=== PATIENT | female | born 1985 | race Caucasian/White ===

== ENCOUNTER 2017-04-17 09:48 | Emergency (ER) | payer OTHER ==
--- NOTE | 2017-04-17 10:20 | ED ---
Female Urogenital HPI - General Chief complaint: Urogenital Stated complaint: Vaginal pain Time Seen by Provider: 04/17/17 10:12 Source: patient, RN notes reviewed Mode of arrival: ambulatory Limitations: no limitations - History of Present Illness Initial comments: 31-year-old female presents to the emergency Department chief complaint of pelvic pain and vaginal spotting. Patient states she's had this pain for the past few days. Patient states she's noticed a clear discharge along with spotting. Patient states that she has lower abdominal pain pain with sexual intercourse. Patient states she had a Pap smear about 6 weeks ago and everything was negative. Patient denies any burning with urination. Patient states is have a strange odor and color to the urine. Patient states that she was concerned due to pain and discomfort so she thought that she should be evaluated.Patient denies any recent fever, chills, shortness of breath, chest pain, back pain, abdominal pain, nausea vomiting, numbness or tingling, dysuria or hematuria, constipation or diarrhea, headaches or visual changes, or any other current symptoms. Last Menstrual Period: 02/21/17 - Related Data Previous Rx's Medication Instructions Recorded Cephalexin [Keflex] 500 mg PO Q6HR #40 cap 04/17/17 Doxycycline [Vibramycin] 100 mg PO Q12HR #56 capsule 04/17/17 Allergies Allergy/AdvReac Type Severity Reaction Status Date / Time Penicillins Allergy Unknown Verified 04/17/17 10:06 Childhood Review of Systems ROS Statement: Those systems with pertinent positive or pertinent negative responses have been documented in the HPI. ROS Other: All systems not noted in ROS Statement are negative. Past Medical History Past Medical History: No Reported History History of Any Multi-Drug Resistant Organisms: None Reported Past Surgical History: Adenoidectomy Additional Past Surgical History / Comment(s): Ear Surgery - tubes and reconstruction Past Anesthesia/Blood Transfusion Reactions: No Reported Reaction Past Psychological History: No Psychological Hx Reported Smoking Status: Current every day smoker Past Alcohol Use History: None Reported Past Drug Use History: None Reported General Exam Limitations: no limitations General appearance: alert, in no apparent distress Neck exam: Present: normal inspection. Absent: tenderness, meningismus, lymphadenopathy Respiratory exam: Present: normal lung sounds bilaterally. Absent: respiratory distress, wheezes, rales, rhonchi, stridor Cardiovascular Exam: Present: regular rate, normal rhythm, normal heart sounds. Absent: systolic murmur, diastolic murmur, rubs, gallop, clicks GI/Abdominal exam: Present: soft, normal bowel sounds. Absent: distended, tenderness, guarding, rebound, rigid External exam: Present: normal external exam Speculum exam: Present: erythema (Minimal to the service), cervical discharge ( Bloody, clear), vaginal bleeding By manual exam: Present: cervical motion tenderness. Absent: adnexal tenderness , adnexal mass, uterine enlargement, uterine tenderness Neurological exam: Present: alert, oriented X3 Psychiatric exam: Present: normal affect, normal mood Skin exam: Present: warm, dry, intact, normal color. Absent: rash Course Vital Signs 04/17/17 10:06 Temperature 97.4 F L Pulse Rate 77 Respiratory 20 Rate Blood Pressure 117/56 O2 Sat by Pulse 98 Oximetry Medical Decision Making - Medical Decision Making 31-year-old female presents to the emergency Department chief complaint of concern for STDs. At this time patient does have cervical motion tenderness. We did prophylactically treat. We did discuss a sex practices care follow-up. We did discuss return parameters all questions. Patient stated that she understood and she is negative. This time patient will be discharged home. - Lab Data Lab Results 04/17/17 04/17/17 04/17/17 Range/Units 10:26 10:26 10:26 Urine Color Dark Yellow Urine Appearance Cloudy H (Clear) Urine pH 5.5 (5.0-8.0) Ur Specific [place] 1.033 (1.001-1.035) Urine Protein 1+ H (Negative) Urine Glucose (UA) Negative (Negative) Urine Ketones Trace H (Negative) Urine Blood Negative (Negative) Urine Nitrite Negative (Negative) Urine Bilirubin 1+ H (Negative) Urine Urobilinogen 4.0 (<2.0) mg/dL Ur Leukocyte Esterase Small H (Negative) Urine RBC 14 H (0-5) /hpf Urine WBC 10 H (0-5) /hpf Ur Squamous Epith Cells 4 (0-4) /hpf Urine Bacteria Rare H (None) /hpf Urine Mucus Many H (None) /hpf Urine HCG, Qual Not Detected (Not Detectd) Trichomonas Ag (Rapid) Negative (Negative) Disposition Clinical Impression: Pelvic pain, Concern about STD in female without diagnosis, UTI (urinary tract infection) Disposition: HOME SELF-CARE Condition: Stable Instructions: Sexually Transmitted Diseases (ED) Additional Instructions: Please use medication as discussed. Please follow up with family doctor if symptoms have not improved over the next two days. Please return to the emergency room if your symptoms increase or worsen or for any other concerns. Prescriptions: Cephalexin [Keflex] 500 mg PO Q6HR #40 cap Doxycycline [Vibramycin] 100 mg PO Q12HR #56 capsule Referrals: Radha eTna MD [Primary Care Provider] - 1-2 days Time of Disposition: 11:21
[2017-04-17] MEDS ORDERED: cefTRIAXone 250 MG VIAL IM STA (10:30)
[2017-04-17] MEDS ORDERED: AZITHROMYCIN 500 MG TAB PO STA (10:30)
[2017-04-17] MEDS ORDERED: metroNIDAZOLE 500 MG TAB PO STA (10:30)
[2017-04-17 10:43] LABS: Appearance,Urine Cloudy (Clear); Bacteria,Urine Rare /hpf; Bilirubin,Urine 1+ (Negative); Glucose,Urine (UA) Negative (Negative); Ketones,Urine Trace (Negative); Leukocyte Esterase,Urine Small (Negative); Mucus,Urine Many /hpf; Nitrite,Urine Negative (Negative); PH, Urine 5.5 (5.0-8.0); Particle Count 15220; Protein,Urine 1+ (Negative); RBC,Urine 14 /hpf (0-5); Specific Gravity,Urine 1.033 (1.001-1.035); Squamous Epithelial Cell,Urine 4 /hpf (0-4); UA Billing (MACRO vs. MICRO) MICRO; WBC,Urine 10 /hpf (0-5)
[2017-04-17 11:34] VITALS: BP 118/56; PULSE 79; RESP 18; TEMP 98.1
== END 2017-04-17 11:34 | disposition home or self-care (01) ==
LOC: EC 09:48
DX: N39.0 Urinary tract infection, site not specified (principal); F17.200 Nicotine dependence, unspecified, uncomplicated; Z88.0 Allergy status to penicillin
CPT/HCPCS: 87591; 87491; 81001; 81025; 87808; 87070; 87086; 99283; 96372; J0696; 87205

== ENCOUNTER 2017-07-08 23:40 | Emergency (ER) | payer OTHER ==
[2017-07-08 23:49] VITALS: RESP 18
[2017-07-09] MEDS ORDERED: ACETAMINOPHEN TAB 325 MG TAB PO STA (00:42)
[2017-07-09] MEDS ORDERED: IPRATROPIUM-ALBUTEROL 3 ML NEB INHALATION STA (00:42)
[2017-07-09] MEDS ORDERED: methylPREDNISolone SOD SUCCI 125 MG/2 ML VIAL IV STA (00:42)
[2017-07-09] MEDS ORDERED: SODIUM CHLORIDE 0.9% 500 ML IV STA (00:43)
[2017-07-09 01:57] LABS: ALT 39 U/L (9-52); AST 18 U/L (14-36); Alkaline Phosphatase 100 U/L (38-126); Anion Gap 9 mmol/L; Anisocytosis Slight; Basophils % (A) 0 %; Blood Urea Nitrogen 9 mg/dL (7-17); CH 26.1; CHCM 31.5; Calcium 8.8 mg/dL (8.4-10.2); Carbon Dioxide 21 mmol/L (22-30); Chloride 110 mmol/L (98-107); Eosinophils # (A) 0.2 k/uL (0-0.7); Eosinophils % (A) 2 %; Glucose 96 mg/dL (74-99); HCT 41.1 % (34.0-46.0); HDW 2.71; Hypochromasia Slight; Luc # (Auto) 0.15; Luc % (Auto) 1; Lymphocytes # (A) 1.9 k/uL (1.0-4.8); Lymphocytes % (A) 18 %; MCH 26.4 pg (25.0-35.0); MCHC 31.6 g/dL (31.0-37.0); MCV 83.6 fL (80.0-100.0); Monocytes # (A) 0.4 k/uL (0-1.0); Monocytes % (A) 4 %; Neutrophils # (A) 8.1 k/uL (1.3-7.7); Neutrophils % (A) 75 %; Non-African American GFR(MDRD) >60 (>60 ml/min/1.73 sqM); Potassium 3.9 mmol/L (3.5-5.1); RBC 4.92 m/uL (3.80-5.40); RDW 17.5 % (11.5-15.5); Sodium 140 mmol/L (137-145); Total Bilirubin 0.2 mg/dL (0.2-1.3); Total Protein 6.1 g/dL (6.3-8.2); WBC 10.8 k/uL (3.8-10.6); WBC (Perox) 11.18
--- NOTE | 2017-07-09 02:19 | XR ---
EXAM: XR Chest, 2 Views CLINICAL HISTORY: Reason: Pain TECHNIQUE: Frontal and lateral views of the chest. COMPARISON: No relevant prior studies available. FINDINGS: Lungs: Unremarkable. No consolidation. Pleural space: Unremarkable. No pneumothorax. Heart: Unremarkable. No cardiomegaly. Mediastinum: Unremarkable. Bones/joints: Unremarkable. Soft tissues: Left nipple ring. IMPRESSION: No acute findings.
[2017-07-09 02:58] VITALS: BP 142/78; PULSE 80; TEMP 97.8
--- NOTE | 2017-07-09 03:20 | ED ---
SOB HPI - General Chief Complaint: Shortness of Breath Stated Complaint: MEEK,Heart Palpitations Time Seen by Provider: 07/09/17 00:03 Source: patient Mode of arrival: ambulatory Limitations: no limitations - History of Present Illness Initial Comments: 31-year-old female patient presents with a 2 day history of cough and shortness of breath. Patient states that she started with a congested sounding cough yesterday. States that today she feels run down, states that the cough is worsening. She states that she has chest tightness and shortness of breath with activity. She states that the chest tightness wraps around her back. She states that she does hear some wheezing. She denies any sputum production, states that the cough is dry. She states that she has no history of a lung condition. She states that she does smoke cigarettes. She states that she also has nasal congestion and facial pressure, the nasal discharge is green in color. She denies any ear pain. There are several people at her place of employment sick with similar symptoms. Patient denies any recent fever, chills, shortness breath, chest pain, abdominal pain, nausea, vomiting, diarrhea, constipation, back pain, numbness, tingling, dizziness, weakness, hematuria, dysuria, urinary urgency, urinary frequency, headache, visual changes, or any other complaints. - Related Data Previous Rx's Medication Instructions Recorded Cephalexin [Keflex] 500 mg PO Q6HR #40 cap 04/17/17 Doxycycline [Vibramycin] 100 mg PO Q12HR #56 capsule 04/17/17 Albuterol Sulfate [Proair Hfa] 1 - 2 puff INHALATION Q6HR PRN #1 07/09/17 inhaler predniSONE 50 mg PO DAILY #7 tablet 07/09/17 Allergies Allergy/AdvReac Type Severity Reaction Status Date / Time Penicillins Allergy Unknown Verified 07/08/17 23:46 Childhood morphine AdvReac Nausea & Verified 07/08/17 23:46 Vomiting Review of Systems ROS Statement: Those systems with pertinent positive or pertinent negative responses have been documented in the HPI. ROS Other: All systems not noted in ROS Statement are negative. Past Medical History Past Medical History: No Reported History History of Any Multi-Drug Resistant Organisms: None Reported Past Surgical History: Adenoidectomy Additional Past Surgical History / Comment(s): Ear Surgery - tubes and reconstruction Past Anesthesia/Blood Transfusion Reactions: No Reported Reaction Past Psychological History: No Psychological Hx Reported Smoking Status: Current every day smoker Past Alcohol Use History: None Reported Past Drug Use History: None Reported General Exam Limitations: no limitations General appearance: alert, in distress (Mild), other (Well-developed, well- nourished adult female who appears to be in mild respiratory distress. Labored breathing noted. Initial vital signs were temperature 98.1F, pulse 94, respirations 18, blood pressure 135/62, pulse ox 97% on room air.) ENT exam: Present: normal exam, normal oropharynx, mucous membranes moist, TM's normal bilaterally Neck exam: Present: normal inspection. Absent: tenderness, meningismus, lymphadenopathy Respiratory exam: Present: wheezes (Tight expiratory wheezing noted throughout all posterior lung marshall.), accessory muscle use, other (She is able to speak full sentences). Absent: respiratory distress, rales, rhonchi, stridor Cardiovascular Exam: Present: regular rate, normal rhythm, normal heart sounds. Absent: systolic murmur, diastolic murmur, rubs, gallop, clicks GI/Abdominal exam: Present: soft, normal bowel sounds. Absent: distended, tenderness, guarding, rebound, rigid Neurological exam: Present: alert, oriented X3, CN II-XII intact Psychiatric exam: Present: normal affect, normal mood Skin exam: Present: warm, dry, intact, normal color. Absent: rash Course Vital Signs 07/08/17 07/09/17 07/09/17 23:46 00:48 00:58 Temperature 98.1 F 99.8 F H Pulse Rate 94 88 Respiratory 18 Rate Blood Pressure 135/62 O2 Sat by Pulse 97 Oximetry 07/09/17 07/09/17 01:04 02:57 Temperature 97.8 F Pulse Rate 88 80 Respiratory 18 Rate Blood Pressure 142/78 O2 Sat by Pulse 99 Oximetry Medical Decision Making - Medical Decision Making 31-year-old female patient presented to emergency department today for complaints of cough, congestion, and shortness of breath. Lab work was reviewed and was unremarkable. Chest x-ray showed no acute cardiopulmonary process. Physical exam did reveal tight expiratory wheezing throughout posterior lung marshall. Patient was given IV Solu-Medrol and an updraft breathing treatment. States this did improve her symptoms somewhat. Vital signs remained stable. She will be discharged home on a 7 day course of prednisone as well as the albuterol inhaler to use every 4 hours as needed. She 'll be instructed to follow-up with her primary care physician for recheck in 1- 2 days. She is instructed to return here immediately for any new, worsening, or concerning symptoms. Patient verbalizes understanding and agrees with this plan. - Lab Data Result diagrams: 07/09/17 01:35 07/09/17 01:35 Lab Results 07/09/17 07/09/17 07/09/17 Range/Units 01:20 01:35 01:35 WBC 10.8 H (3.8-10.6) k/uL RBC 4.92 (3.80-5.40) m/uL Hgb 13.0 (11.4-16.0) gm/dL Hct 41.1 (34.0-46.0) % MCV 83.6 (80.0-100.0) fL MCH 26.4 (25.0-35.0) pg MCHC 31.6 (31.0-37.0) g/dL RDW 17.5 H (11.5-15.5) % Plt Count 206 (150-450) k/uL Neutrophils % 75 % Lymphocytes % 18 % Monocytes % 4 % Eosinophils % 2 % Basophils % 0 % Neutrophils # 8.1 H (1.3-7.7) k/uL Lymphocytes # 1.9 (1.0-4.8) k/uL Monocytes # 0.4 (0-1.0) k/uL Eosinophils # 0.2 (0-0.7) k/uL Basophils # 0.0 (0-0.2) k/uL Hypochromasia Slight Anisocytosis Slight Sodium 140 (137-145) mmol/L Potassium 3.9 (3.5-5.1) mmol/L Chloride 110 H (98-107) mmol/L Carbon Dioxide 21 L (22-30) mmol/L Anion Gap 9 mmol/L BUN 9 (7-17) mg/dL Creatinine 0.80 (0.52-1.04) mg/dL Est GFR (MDRD) Af Amer >60 (>60 ml/min/1.73 sqM) Est GFR (MDRD) Non-Af >60 (>60 ml/min/1.73 sqM) Glucose 96 (74-99) mg/dL Calcium 8.8 (8.4-10.2) mg/dL Total Bilirubin 0.2 (0.2-1.3) mg/dL AST 18 (14-36) U/L ALT 39 (9-52) U/L Alkaline Phosphatase 100 (38-126) U/L Total Protein 6.1 L (6.3-8.2) g/dL Albumin 3.3 L (3.5-5.0) g/dL Influenza Type A RNA Not Detected (Not Detectd) Influenza Type B (PCR) Not Detected (Not Detectd) - Radiology Data Radiology results: report reviewed, image reviewed Two-view x-ray of the chest shows that the lungs are unremarkable with no consolidation. Pleural spaces unremarkable no pneumothorax. Heart is unremarkable no cardia megaly. Mediastinum is unremarkable. Bones and joints are unremarkable. Soft tissues show left nipple ring. Impression by Dr. Salmeron shows no acute findings. Disposition Clinical Impression: Acute bronchitis, Wheezing Disposition: HOME SELF-CARE Condition: Good Instructions: Acute Bronchitis (ED) Additional Instructions: Increase fluids. Use medications as directed. Follow up with her primary care physician for recheck in 1-2 days. Return here immediately for any new, worsening, or concerning symptoms. Prescriptions: Albuterol Sulfate [Proair Hfa] 1 - 2 puff INHALATION Q6HR PRN #1 inhaler PRN Reason: Shortness of Breath/Wheezing predniSONE 50 mg PO DAILY #7 tablet Referrals: Radha Tena MD [Primary Care Provider] - 1-2 days Time of Disposition: 03:19
== END 2017-07-09 03:33 | disposition home or self-care (01) ==
LOC: EC 23:40
DX: J20.9 Acute bronchitis, unspecified (principal); N64.59 Other signs and symptoms in breast; R09.81 Nasal congestion; F17.210 Nicotine dependence, cigarettes, uncomplicated; Z88.0 Allergy status to penicillin; Z88.5 Allergy status to narcotic agent
CPT/HCPCS: 36415; 94640; 80053; 85025; 87040; 87502; 71020; 99285; 96374; 96361 ×2; J2930

== ENCOUNTER → 2017-07-08 | Outpatient (CLI) | payer OTHER ==
[2017-07-08 09:49] LABS: Anisocytosis Slight; Basophils % (A) 0 %; CH 26.4; CHCM 32.5; Eosinophils # (A) 0.2 k/uL (0-0.7); Eosinophils % (A) 2 %; HCT 40.6 % (34.0-46.0); HDW 2.83; HGB 12.8 gm/dL (11.4-16.0); Luc # (Auto) 0.11; Luc % (Auto) 1; Lymphocytes # (A) 1.2 k/uL (1.0-4.8); Lymphocytes % (A) 15 %; MCH 25.8 pg (25.0-35.0); MCHC 31.4 g/dL (31.0-37.0); Mean Platelet Volume 7.2; Microcytosis Slight; Monocytes # (A) 0.4 k/uL (0-1.0); Monocytes % (A) 5 %; Neutrophils # (A) 6.1 k/uL (1.3-7.7); Neutrophils % (A) 77 %; RBC 4.95 m/uL (3.80-5.40); RDW 18.1 % (11.5-15.5); WBC (Perox) 8.57
== END | disposition home or self-care (01) ==
LOC: LABPAT 08:41
PROVIDERS: ATTEND Obstetrics & Gynecology
DX: Z01.812 Encounter for preprocedural laboratory examination (principal)
CPT/HCPCS: 36415; 85025

== ENCOUNTER 2017-07-15 07:38 | Day surgery (SDC) | payer OTHER ==
[2017-07-13 10:15] VITALS: BMI 33.0
--- NOTE | 2017-07-15 06:17 | P.HPOB ---
History of Present Illness H&P Date: 07/15/17 Chief Complaint: Family planning Patient is a 31-year-old female who has completed her family planning and desires permanent sterilization. Risks/benefits/alternatives to this procedure were discussed with the patient in detail and all questions are answered for her prior to proceeding to the operating room. On physical exam vital signs are stable and afebrile. Heart regular, lungs clear, extremities without pain. Osteopathic exam is unremarkable. Abdomen is soft positive bowel sounds are noted. Pelvic exams unremarkable. Assessment family planning. Plan laparoscopic tubal occlusion with Filshie clips Past Medical History Past Medical History: No Reported History Additional Past Medical History / Comment(s): RECENTLY SEEN IN ER FOR BRONCHITIS -WAS PUT ON STERIODS History of Any Multi-Drug Resistant Organisms: None Reported Past Surgical History: Adenoidectomy Additional Past Surgical History / Comment(s): Ear Surgery - tubes and reconstruction Past Anesthesia/Blood Transfusion Reactions: No Reported Reaction Smoking Status: Current every day smoker - Past Family History Mother Family Medical History: Cancer Sister(s) Family Medical History: Cancer Medications and Allergies Home Medications Medication Instructions Recorded Confirmed Type Albuterol Sulfate [Proair Hfa] 1 - 2 puff INHALATION Q6HR PRN #1 07/09/17 Rx inhaler predniSONE 50 mg PO DAILY #7 tablet 07/09/17 07/13/17 Rx Introvale-Bc 1 each PO DAILY 07/13/17 History Allergies Allergy/AdvReac Type Severity Reaction Status Date / Time Penicillins Allergy Unknown Verified 07/13/17 10:04 Childhood morphine AdvReac Nausea & Verified 07/13/17 10:04 Vomiting Exam Osteopathic Statement: *. No significant issues noted on an osteopathic structural exam other than those noted in the History and Physical/Consult.
[~2017-07-15 07:38] MED LIST: DEXAMETHASONE SOD PHOSPHATE 10 MG/ML 1 ML VIAL IV ONE; ONDANSETRON 4 MG/2 ML VIAL IVP ONE; Pre Op ABX Message 1 EACH MISC MISCELLANE ONE
[2017-07-15 07:52] VITALS: RESP 16
[2017-07-15] MEDS: LACTATED RINGERS 1,000 ML IV SCH ×2 (07:54→08:08)
[2017-07-15] MEDS ORDERED: LIDOCAINE 1% 20 ML VIAL (10MG/ML) FOR IV START INTRADERMA ONE ×2 (07:54)
[2017-07-15 07:59] LABS: Glucose,Whole Blood 74 mg/dL (75-99)
[2017-07-15] MEDS ORDERED: HYDROCORTISONE SUCCINATE 100 MG/2 ML VIAL IVP ONE (08:01)
[2017-07-15] MEDS ORDERED: KETOROLAC 30 MG/ML 1 ML VIAL ONE (08:10)
[2017-07-15] MEDS ORDERED: PROPOFOL 10 MG/ML 20 ML VIAL IV ONE (08:10)
[2017-07-15] MEDS ORDERED: fentaNYL (PF) 50 MCG/ML 2 ML AMP ONE (08:10)
[2017-07-15] MEDS ORDERED: MIDAZOLAM 2 MG/2 ML VIAL ONE (08:10)
[2017-07-15] MEDS ORDERED: SUCCINYLCHOLINE CHLORIDE 100 MG/5 ML SYR IV ONE (08:10)
[2017-07-15] MEDS ORDERED: BUPIVACAINE (PF) 0.25% 30 ML VIAL SQ ONE ×2 (08:34)
--- NOTE | 2017-07-15 08:47 | P.OP ---
Date of Procedure: 07/15/17 Preoperative Diagnosis: Family planning Postoperative Diagnosis: Same Procedure(s) Performed: Laparoscopic tubal ligation with Filshie clips Anesthesia: MICHELLE Surgeon: Kendell Rodrigues Estimated Blood Loss (ml): 3 Pathology: none sent Condition: stable Disposition: same day Operative Findings: Normal female pelvic anatomy Description of Procedure: Patient was taken to the operating suite where a general anesthetic was found be adequate. She was prepped and draped in normal sterile fashion placed in the dorsal lithotomy position. Initially a speculum was inserted into the vagina and the anterior lip cervix identified and grasped with single-tooth tenaculum. An acorn manipulator was then inserted without difficulty. Speculum was then removed and a red rubber catheter was used to drain the bladder of urine. Once this was accomplished other changed and attention was turned to abdominal portion procedure where 3 mL of quarter percent Marcaine was injected periumbilically. Through this injected anesthetic a 5 mm skin incision was made and through this incision under direct visualization with an optical trocar and sleeve the camera was inserted. Once peritoneal placement was assured gas was left fully insufflate the abdomen and patient's placement steep Trendelenburg position. A second 8 mm skin incision was then made in the midline 3 cm above the pubic symphysis and through this incision an 8 mm trocar and sleeve were inserted again under direct visualization. Uterus was then elevated observations pelvis were noted as above. First the right tube than the left tube had a Filshie clip applied 2 cm from uterine cornu. With no bleeding from the mesosalpinx instruments were removed and gas was allowed to expel from the abdomen. 5 deep breaths were provided during this process. Once this was accomplished 4-0 Vicryl was used to close the incisions subcuticularly and another 6 mL of quarter percent Marcaine was injected around these incisions. The remainder of the incidents removed from the vagina sponge , lap, needle counts were all correct 2. Patient was then taken to the recovery room in stable and satisfactory condition. Plan - Discharge Summary New Discharge Prescriptions: New HYDROcodone/IBUPROFEN 7.5-200 [Vicoprofen 7.5-200 mg] 1 tab PO Q4HR PRN #30 tab PRN Reason: Pain No Action Albuterol Sulfate [Proair Hfa] 1 - 2 puff INHALATION Q6HR PRN #1 inhaler PRN Reason: Shortness of Breath/Wheezing predniSONE 50 mg PO DAILY #7 tablet Introvale-Bc 1 each PO DAILY Discharge Medication List Albuterol Sulfate [Proair Hfa] 1 - 2 puff INHALATION Q6HR PRN #1 inhaler [Rx] predniSONE 50 mg PO DAILY #7 tablet 07/09/17 [Rx] Introvale-Bc 1 each PO DAILY 07/13/17 [History] HYDROcodone/IBUPROFEN 7.5-200 [Vicoprofen 7.5-200 mg] 1 tab PO Q4HR PRN #30 tab 07/15/17 [Rx] Follow up Appointment(s)/Referral(s): Kendell Rodrigues DO [Doctor of Osteopathic Medicine] - 2 Weeks Activity/Diet/Wound Care/Special Instructions: No Heavy lifting, limit stairs and driving, and pelvic rest. If any high temperatures, heavy bleeding, or severe pain call my office Discharge Disposition: HOME SELF-CARE
[2017-07-15] MEDS ORDERED: PROMETHAZINE INJ 25 MG/ML 1 ML VIAL IVPB ONE (09:01)
[2017-07-15] MEDS: HYDROmorphone 0.5 MG/0.5 ML SYRINGE IVP PRN ×2 (09:02→09:15)
[2017-07-15 09:10] VITALS: TEMP 97.2
[2017-07-15 10:40] VITALS: BP 142/77; PULSE 56
== END 2017-07-15 10:52 | disposition home or self-care (01) ==
LOC: OR 07:38
PROVIDERS: ATTEND Obstetrics & Gynecology
DX: Z30.2 Encounter for sterilization (principal); J40 Bronchitis, not specified as acute or chronic; F17.200 Nicotine dependence, unspecified, uncomplicated; Z79.3 Long term (current) use of hormonal contraceptives; Z79.52 Long term (current) use of systemic steroids; Z79.899 Other long term (current) drug therapy; Z88.5 Allergy status to narcotic agent; Z88.0 Allergy status to penicillin
CPT/HCPCS: 81025; 58671; J2250; J1100; J2550; J1720; J2405; J3010; J1885; J0330; J2704; J1170

== ENCOUNTER → 2019-07-13 | Outpatient (CLI) | payer OTHER ==
[2019-07-13 09:43] VITALS: BP 107/64; PULSE 69; RESP 16; TEMP 98.6; BMI 35.8
--- NOTE | 2019-07-13 10:22 | P.HPBAR ---
Bariatric H&P - History & Physicial H&P Date: 07/13/19 History & Physicial: Visit/CC: Initial Visit Patient initial contact: Initial weight: 84.368 kg Initial weight in pounds: 186.00 Height: 5 ft 0.5 in Initial BMI: 35.7 Last weight: Current weight: 84.623 kg Current weight in pounds: 186.56 Current BMI: 35.8 [place] body weight (based on NIH guidelines): 46.493 kg Excess body weight loss: The patient is a 33 year-old F who presents for Bariatric Assessment. HPI: She is looking into the sleeve gastrectomy. She has family who had sleeve gastrectomy. Highest weight of 230 pounds. She has tried for weight loss with carb restriction and avoiding pop. She started being more active. Her most weight loss with dieting was 50 pounds to her present weight. She was smoking 1 month ago. No stomach or esophageal cancer. She has GERD not currently on medications. Grandmother had possible inflammatory bowel disease. No food allergies. PCN allergy is a rash as a baby. No blood clots in the family. Grandmother has PVOD from diabetes. She has troubles with fatigue and has not been evaluated with sleep apnea. Has occasional food getting stuck. She has easy bruising. She still has gallbladder and has indigestion with her gallbladder. Her grandmother had her gallbladder who has MFHTR. Only ear surgeries and a tubal. She has alpha -1 trypsen (z) gene. She has severe knee and back pain including foot sleeping. She was on Metformin for PCOS. She is pre-diabetic. ABDOMEN: No surgeries. ASSESSMENT: 1. Morbid obesity PLAN: 1. Urine nicotine per insurance. 2. Hematology possible follow up Past Medical History Past Medical History: No Reported History History of Any Multi-Drug Resistant Organisms: None Reported Past Surgical History: Adenoidectomy Additional Past Surgical History / Comment(s): Ear Surgery - tubes and reconstruction Past Anesthesia/Blood Transfusion Reactions: No Reported Reaction Past Psychological History: No Psychological Hx Reported Smoking Status: Current every day smoker Past Alcohol Use History: None Reported Past Drug Use History: None Reported Surgical - Exam Vital Signs Temp Pulse Resp BP 98.6 F 69 16 107/64 07/13/19 09:38 07/13/19 09:38 07/13/19 09:38 07/13/19 09:38 Bariatric Checklist Checklist: Plan: Checklist: EGD: 1. Hiatal hernia: 2. H. Pylori: HgbA1c: Vitamin D: Smoking: Current every day smoker Primary care physician referral: Angelo Psychiatry clearance: Cardiology clearance: Sleep study: Diet journal: VTE risk score: VTE risk level: Rehab needs at discharge:
[2019-07-13 11:30] LABS: Anisocytosis Slight; HCT 37.8 % (34.0-46.0); Hypochromasia Slight; MCH 24.5 pg (25.0-35.0); MCHC 31.6 g/dL (31.0-37.0); MCV 77.5 fL (80.0-100.0); Mean Platelet Volume 6.4; Microcytosis Slight; Platelet Count 241 k/uL (150-450); RBC 4.88 m/uL (3.80-5.40); RDW 16.4 % (11.5-15.5); WBC 6.5 k/uL (3.8-10.6)
[2019-07-13 11:44] LABS: INR 0.9 (<1.2); Partial Thromboplastin Time 23.1 sec (22.0-30.0); Prothrombin Time 9.6 sec (9.0-12.0)
[2019-07-13 17:18] LABS: African American GFR (CKD) 112.3 (60.0-200.0); Albumin 3.9 g/dL (3.80-4.90); Albumin/Globulin Ratio 2.05 (1.60-3.17); Anion Gap 6.8 mmol/L (4.00-12.00); BUN/Creat Ratio 18.75 Ratio (12.00-20.00); Calcium 8.8 mg/dL (8.7-10.3); Carbon Dioxide 21.2 mmol/L (21.6-31.8); Chol/HDL Ratio 4.09; Globulin 1.9 g/dL (1.6-3.3); Magnesium 1.9 mg/dL (1.5-2.4); Phosphorus 3.5 mg/dL (2.4-5.1); Potassium 4.6 mmol/L (3.5-5.5); Total Bilirubin 0.3 mg/dL (0.3-1.2); Total Protein 5.8 g/dL (6.2-8.2)
[2019-07-13 17:39] LABS: Folate, Serum 6.9 ng/mL; Vitamin D 25 Hydroxy 31.5 ng/mL (30.0-100.0)
[2019-07-13 17:41] LABS: Ferritin 4.7 ng/mL (10.0-291.0); Iron Saturation 5.01 (12.00-45.00)
[2019-07-13 20:18] LABS: Hemoglobin A1C 5.8 % (4.0-6.0)
[2019-07-14 13:54] LABS: Zinc, Serum 62 ug/dL (60-130)
[2019-07-15 08:17] LABS: Vit B1(Thiamine) 55 ug/L (38-122)
[2019-07-15 09:11] LABS: Vitamin A 34 ug/dL (38-106)
== END | disposition home or self-care (01) ==
LOC: BARWHC3 08:59
PROVIDERS: ATTEND Surgery Plastic and Reconstructive Surgery
DX: E66.01 Morbid (severe) obesity due to excess calories (principal); E21.1 Secondary hyperparathyroidism, not elsewhere classified; D50.9 Iron deficiency anemia, unspecified; K90.9 Intestinal malabsorption, unspecified; E55.9 Vitamin D deficiency, unspecified; K74.1 Hepatic sclerosis; N19 Unspecified kidney failure; K50.90 Crohn's disease, unspecified, without complications
CPT/HCPCS: 84255; 84134; 84425; 80061; 80053; 82607; 82728; 82525; 82746; 83540; 83550; 83735; 84100; 84443; 84590; 84630; 85027; 85610; 85730; 82306; 83970; 83036; 93005; G0480; G0463; 80323; 99211

== ENCOUNTER → 2019-08-04 | Outpatient (CLI) | payer OTHER | END | disposition home or self-care (01) | LOC: LABPAT 12:07 | PROVIDERS: ATTEND Surgery Plastic and Reconstructive Surgery | DX: Z01.810 Encounter for preprocedural cardiovascular examination (principal); Z01.812 Encounter for preprocedural laboratory examination | CPT/HCPCS: 93005 ==

== ENCOUNTER 2019-08-14 08:41 | Day surgery (SDC) | payer OTHER ==
[2019-08-10 15:07] VITALS: BMI 35.9
--- NOTE | 2019-08-14 07:44 | P.GSHP ---
History of Present Illness H&P Date: 08/14/19 CHIEF COMPLAINT: GERD HISTORY OF PRESENT ILLNESS: The patient is a 34-year-old female who presents reports gastroesophageal reflux disease. Upper endoscopy was offered for further evaluation and management. PAST MEDICAL HISTORY: Please see list. PAST SURGICAL HISTORY: Please see list. MEDICATIONS: Please see list. ALLERGIES: Please see list. SOCIAL HISTORY: No illicit drug use FAMILY HISTORY: No reports of Crohn disease or ulcerative colitis. REVIEW OF ORGAN SYSTEMS: CONSTITUTIONAL: No reports of fevers or chills. GI: Denies any blood in stools or constipation. PHYSICAL EXAM: VITAL SIGNS: Stable GENERAL: Well-developed and pleasant in no acute distress. HEENT: No scleral icterus. Extraocular movements grossly intact. Moist buccal mucosa. NECK: Supple without lymphadenopathy. CHEST: Unlabored respirations. Equal bilateral excursions. CARDIOVASCULAR: Regular rate and rhythm. Distal 2+ pulses. ABDOMEN: Soft, nondistended. MUSCULOSKELETAL: No clubbing, cyanosis, or edema. ASSESSMENT: 1. Gastroesophageal reflux disease PLAN: 1. Recommend proceeding with an upper endoscopy Past Medical History Past Medical History: No Reported History History of Any Multi-Drug Resistant Organisms: None Reported Past Surgical History: Adenoidectomy, Tubal Ligation Additional Past Surgical History / Comment(s): Ear Surgery - tubes and reconstruction Past Anesthesia/Blood Transfusion Reactions: Postoperative Nausea & Vomiting (PONV) Past Psychological History: No Psychological Hx Reported Smoking Status: Former smoker Past Alcohol Use History: None Reported Additional Past Alcohol Use History / Comment(s): smoked for 10+ years 1/2 ppd quit 06/05 Past Drug Use History: None Reported - Past Family History Mother Family Medical History: Cancer Additional Family Medical History / Comment(s): ocular and skin cancer Sister(s) Family Medical History: Cancer Additional Family Medical History / Comment(s): nonhodgkins lymphoma Father Additional Family Medical History / Comment(s): alpha 1 antitrypsin Medications and Allergies Home Medications Medication Instructions Recorded Confirmed Type Albuterol Sulfate [Proair Hfa] 1 - 2 puff INHALATION Q6HR PRN #1 07/09/17 08/10/19 Rx inhaler Phentermine HCl [Adipex P] 15 mg PO DAILY 07/13/19 08/10/19 History Allergies Allergy/AdvReac Type Severity Reaction Status Date / Time Penicillins Allergy Unknown Verified 08/10/19 15:01 Childhood morphine AdvReac Nausea & Verified 08/10/19 15:01 Vomiting
[~2019-08-14 08:41] MED LIST changes: -DEXAMETHASONE SOD PHOSPHATE 10 MG/ML 1 ML VIAL IV ONE; +LACTATED RINGERS 1,000 ML IV SCH; -ONDANSETRON 4 MG/2 ML VIAL IVP ONE; -Pre Op ABX Message 1 EACH MISC MISCELLANE ONE
[2019-08-14 09:00] VITALS: TEMP 97.8
[2019-08-14] MEDS ORDERED: LIDOCAINE 1% 20 ML VIAL (10MG/ML) FOR IV START INTRADERMA ONE (09:10)
[2019-08-14] MEDS ORDERED: LACTATED RINGERS 1,000 ML IV ONE (09:10)
[2019-08-14] MEDS ORDERED: ONDANSETRON 4 MG/2 ML VIAL IVP ONE (09:11)
[2019-08-14] MEDS ORDERED: PROPOFOL 10 MG/ML 20 ML VIAL IV ONE (09:24)
[2019-08-14] MEDS ORDERED: LIDOCAINE 1% INJ 10MG/ML (20 ML MDV) ONE (09:24)
--- NOTE | 2019-08-14 09:36 | P.PCN ---
Date of Procedure: 08/14/19 Description of Procedure: PREOPERATIVE DIAGNOSIS: Gastroesophageal reflux disease. Morbid obesity. POSTOPERATIVE DIAGNOSIS: Morbid obesity. Gastritis. Gastroesophageal reflux disease. OPERATION: Esophagogastroduodenoscopy with biopsies along antrum. SURGEON: Leydi Sinha MD ANESTHESIA: MAC. INDICATIONS: The patient is a 34-year-old female who presents with a history of reflux disease. Benefits and risks of the procedure were described. Informed consent was obtained. DESCRIPTION: The patient was brought into the endoscopy suite and laid in the left lateral decubitus position. An Olympus gastroscope was passed along the posterior oropharynx down to the distal esophagus where the squamocolumnar junction was encountered at 35 cm from the incisors. The stomach was entered and no bile reflux was found. Additional findings are listed below. Biopsies with cold forceps were obtained of the antrum. The first through third portion of the duodenum was examined and unremarkable. Retroflexion of the scope confirmed Hill grade 2 lower esophageal valve. The squamocolumnar junction demonstrated LA grade A erosive esophagitis. The stomach was desufflated. The patient tolerated the procedure well. FINDINGS: Squamocolumnar junction 36 cm from the incisors. Diaphragmatic hiatus at 36 cm. Hill grade 2 lower esophageal valve. LA grade A erosive esophagitis. No active duodenitis. Chronic gastritis RECOMMENDATIONS: Upper endoscopy as needed. Plan - Discharge Summary Discharge Rx Participant: No New Discharge Prescriptions: New Omeprazole 40 mg PO DAILY #14 capsule. No Action Albuterol Sulfate [Proair Hfa] 1 - 2 puff INHALATION Q6HR PRN #1 inhaler PRN Reason: Shortness of Breath/Wheezing Phentermine HCl [Adipex P] 15 mg PO DAILY Discharge Medication List Albuterol Sulfate [Proair Hfa] 1 - 2 puff INHALATION Q6HR PRN #1 inhaler 07/09/17 [Rx] Phentermine HCl [Adipex P] 15 mg PO DAILY 07/13/19 [History] Omeprazole 40 mg PO DAILY #14 capsule. 08/14/19 [Rx] [facility] [facility] [place] [facility] [place] Patient Instructions/Handouts: Gastritis (DC), Diet for Stomach Ulcers and Gastritis (ED) Discharge Disposition: HOME SELF-CARE
[2019-08-14 09:55] VITALS: BP 116/75; PULSE 66; RESP 17
== END 2019-08-14 10:15 | disposition home or self-care (01) ==
LOC: ORWHC2ENDO 08:41
PROVIDERS: ATTEND Surgery Plastic and Reconstructive Surgery
DX: K29.50 Unspecified chronic gastritis without bleeding (principal); K22.10 Ulcer of esophagus without bleeding; K21.9 Gastro-esophageal reflux disease without esophagitis; Z87.891 Personal history of nicotine dependence; Z98.51 Tubal ligation status; Z80.8 Family history of malignant neoplasm of other organs or systems; Z80.7 Family history of other malignant neoplasms of lymphoid, hematopoietic and related tissues; E66.01 Morbid (severe) obesity due to excess calories; Z68.36 Body mass index [BMI] 36.0-36.9, adult; Z79.899 Other long term (current) drug therapy; Z88.5 Allergy status to narcotic agent; Z88.0 Allergy status to penicillin
CPT/HCPCS: 81025; 88305; 43239; J2405; J2001; J2704

== ENCOUNTER → 2019-08-30 | Outpatient (CLI) | payer OTHER ==
--- NOTE | 2019-08-30 14:15 | P.PN ---
Subjective Progress Note Date: 08/30/19 DATE OF SERVICE: 08/30/2019 CHIEF COMPLAINT: Morbid obesity HISTORY OF PRESENT ILLNESS: Guillermo Keller is a 34-year-old female who comes with lifelong morbid obesity. She is looking into the sleeve gastrectomy. She comes in diabetic and osteoarthritis of the knees and lower back. She is looking into the sleeve gastrectomy. She completed upper endoscopy. At height of 5 feet 0.5 inches, her ideal body weight is 127 pounds. She comes in 186 pounds today. Her highest weight was 230 pounds. Her BMI was 44.3. Her body mass index is down to 35.8. She is 59 pounds overweight. PAST MEDICAL HISTORY: 1. Morbid obesity due to excess calories 2. Body mass index of 44.3, initial 3. [id number] disorder 4. Osteoarthritis of the knees 5. Osteoarthritis of the lower back 6. Diabetes type 2, non-insulin dependent 7. Polycystic ovarian syndrome 8. Gastroesophageal reflux disease 9. Asthma PAST SURGICAL HISTORY: 1. Multiple ear surgeries 2. Tubal ligation HOME MEDICATIONS: Home Medications Medication Instructions Recorded Confirmed Phentermine HCl [Adipex P] 15 mg PO DAILY 07/13/19 08/30/19 Previous Rx's Medication Instructions Recorded Albuterol Sulfate [Proair Hfa] 1 - 2 puff INHALATION Q6HR PRN #1 07/09/17 inhaler Omeprazole 40 mg PO DAILY #14 capsule. 08/14/19 ALLERGIES: Allergies Allergy/AdvReac Type Severity Reaction Status Date / Time Penicillins Allergy Unknown Verified 08/30/19 12:48 Childhood morphine AdvReac Nausea & Verified 08/30/19 12:48 Vomiting SOCIAL HISTORY: Current tobacco use. FAMILY HISTORY: No family history of ulcerative colitis disease or Crohn's disease. Family history of morbid obesity. No lupus in the family. No reports of stomach or esophageal cancer. Her grandmother had peripheral vascular occlussive disease from diabetes. Her grandmother has MFHTR. REVIEW OF ORGAN SYSTEMS: CONSTITUTIONAL: At height of 5 feet 0.5 inches, her ideal body weight is 127 pounds. She comes in 186 pounds today. Her highest weight was 230 pounds. Her BMI was 44.3. Her body mass index is down to 35.8. She is 59 pounds overweight. HEENT: Denies any active troubles with vision or hearing. Has troubles with swallowing. ENDOCRINE: Has diabetes. No hypothyroidism. CARDIOVASCULAR: No past reports of palpitations or heart attacks or chest pain. RESPIRATORY: Has daytime somnolence. Has asthma. Has alpha trypsin gene GASTROINTESTINAL: Denies any bright red blood per rectum. No diarrhea. No constipation. Has gastroesophageal reflux disease. MUSCULOSKELETAL: Has lower back pain and joint pain. Has osteoarthritis of the knees. NEURO: No headaches. No seizure disorders. PSYCH: No depression. No suicidal ideation. RHEUMATOLOGIC: No lupus. No rheumatoid arthritis. HEMATOLOGIC: Denies any abnormal bleeding or bruising. No personal history of DVTs. Has easy bruising. SKIN: No rash. No skin cancer. PHYSICAL EXAM: VITAL SIGNS: Height 5 foot 0.5 inches, weight 186 pounds. BMI 35.8 Vital Signs Temp 97.7 F 08/30/19 15:32 Pulse 87 08/30/19 15:32 Resp BP 129/74 08/30/19 15:32 Pulse Ox GENERAL: Well-developed in no acute distress. HEENT: No scleral icterus. Extraocular movements grossly intact. Hears conversational speech. No nasal drainage. NECK: Supple without lymphadenopathy. CHEST: Nonlabored respirations with equal bilateral excursions. CARDIOVASCULAR: Regular rate and regular rhythm. Distal 2+ pulses. ABDOMEN: Obese, soft, nontender, nondistended. MUSCULOSKELETAL: No clubbing, cyanosis. Gross strength 5/5 distal lower extremities. NEURO: No focal or lateralizing signs. Cranial nerves 2 through 12 grossly within normal limits. PSYCH: Appropriate affect. Alert and oriented to person, place and time. SKIN: Good skin turgor. Well perfused. EKG: Normal on repeat LABS: Iron is low at 22, Vitamin A is low at 34. Urine nicotine is elevated. Hgb A1C 5.8 EGD FINDINGS: Squamocolumnar junction 36 cm from the incisors. Diaphragmatic hiatus at 36 cm. Hill grade 2 lower esophageal valve. LA grade A erosive esophagitis. No active duodenitis. Chronic gastritis Final Pathologic Diagnosis GASTRIC ANTRUM, BIOPSY: Chronic gastritis. Helicobacter organisms are not identified on routine H+E stained sections. ASSESSMENT: 1. Morbid obesity due to excess calories 2. Body mass index of 44.3, initial 3. [id number] disorder 4. Osteoarthritis of the knees 5. Osteoarthritis of the lower back 6. Pre-diabetes 7. Polycystic ovarian syndrome 8. Gastroesophageal reflux disease 9. Asthma 10. Dysphagia 11. Vitamin A deficiency 12. Iron deficiency 13. Tobacco abuse PLAN: 1. She wants the sleeve but also has pre-existing history of dysphagia. She is at increased risk for complications. 2. All labs reviewed with Vitamin A deficiency and iron is low. Will need Vitamin A supplement 3. Recommend slow and steady weight loss for 6 months. 4. Strict tobacco cessation advised.
[2019-08-30 15:40] VITALS: BP 129/74; PULSE 87; TEMP 97.7; BMI 37.4
== END | disposition home or self-care (01) ==
LOC: BARWHC3 12:31
PROVIDERS: ATTEND Surgery Plastic and Reconstructive Surgery
DX: E66.01 Morbid (severe) obesity due to excess calories (principal); M17.0 Bilateral primary osteoarthritis of knee; E28.2 Polycystic ovarian syndrome; K21.9 Gastro-esophageal reflux disease without esophagitis; J45.909 Unspecified asthma, uncomplicated; E11.9 Type 2 diabetes mellitus without complications; M16.10 Unilateral primary osteoarthritis, unspecified hip; Z68.41 Body mass index [BMI] 40.0-44.9, adult; E88.01 Alpha-1-antitrypsin deficiency
CPT/HCPCS: 99211